=== PATIENT | female | born 1975 | race Two or more races ===

== ENCOUNTER 2024-10-29 18:55 | Emergency (ER) | payer MEDICAID ==
[~2024-10-29] VITALS: Ht 162.6 cm; Wt 66.7 kg
--- NOTE | 2024-10-29 21:02 | ED.PDOC ---
History of Present Illness(SKN HPI Comments PT PRESENTED TO ED FOR UPPER BACK WOUND CHECK AFTER WART REMOVAL BY LOGGING WORKER TODAY @ NOON. PT STATED WOUND WAS NOT DRESSED POST PROCEDURE AND HAS BEEN BLEEDING EXCESSIVELY. WOUND ON MID-UPPERBACK, APPROX. 1/2 INCH X 1/2 INCH. BLEEDING NOTED. WOUND CLEANED AND DRESSED IN TRIAGE. DENIES DIZZINESS, CHEST PAIN, OR BLOOD THINNERS. Chief Complaint: Wound Check Time Seen by MD: 18:56 History of Present Illness: Nurses Notes, Medications, Allergies Allergies: Coded Allergies: No Known Drug Allergy (Verified Allergy, Unknown, 10/29/24) Information Source: Patient Mode of Arrival: Ambulatory Past Medical History PAST MEDICAL HISTORY: Denies Surgical History: Denies all surgeries SENIOR [employer] DEVELOPER History: No Pertinent SENIOR [employer] J[employer] DEVELOPER History Family History Family History: Reviewed,noncontributory to illness Constitutional: denies: chills, diaphoresis, fatigue, fever, malaise, sweats, weakness, others EENTM: denies: blurred vision, double vision, ear bleeding, ear discharge, ear drainage, ear pain, ear ringing, eye pain, eye redness, hearing loss, mouth p ain, mouth swelling, nasal discharge, nose bleeding, nose congestion, nose pain, photophobia, tearing, throat pain, throat swelling, voice changes, others Respiratory: denies: cough, hemoptysis, orthopnea, SOB at rest, shortness of br eath, SOB with excertion, stridor, wheezing, others Cardiovascular: denies: chest pain, dizzy spells, diaphoresis, Dyspnea on exertion, edema, irregular heart beat, left arm pain, lightheadedness, palpitations, PND, syncope, others Gastrointestinal: denies: abdomen distended, abdominal pain, blood streaked bowels, constipated, diarrhea, dysphagia, difficulty swallowing, hematemesis, melena, nausea, poor appetite, poor fluid intake, rectal bleeding, rectal pain, vomiting, others Genitourinary: denies: abnormal vagina bleeding, burning, dyspareunia, dysuria, flank pain, frequency, hematuria, incontinence, pain, , vagina discharge, urgency, others Neurological: denies: dizziness, fainting, headache, left sided numbness, left sided weakness, numbness, paresthesia, pre-existing deficit, right sided numbness, right sided weakness, seizure, speech problems, tingling, tremors, weakness, others Musculoskeletal: denies: back pain, gout, joint pain, joint swelling, muscle pain, muscle stiffness, neck pain, others Integumetry: reports: wounds (UPPER MID BACK SURGICAL WOUND); denies: bruises, change in color, change in hair/nails, dryness, laceration, lesions, lumps, rash, others Allergic/Immunocompromised: denies: Difficulty Healing, Frequent Infections, Hives, Itching, others Hematologic/Lymphatic: denies: anemia, blood clots, easy bleeding, easy bruising, swollen glands, others Endocrine: denies: excessive hunger, excessive sweating, excessive thirst, excessive urination, flushing, intolerance to cold, intolerance to heat, unexplained weight gain, unexplained weight loss, others Psychiatric: denies: anxiety, bipolar disorder, depression, hopeless, panic disorder, schizophrenia, sleepless, suicidal, others Physical Exam General Appearance: No Apparent Distress, Normal HEENT: Pharynx Normal Neck: Full Range of Motion, Non-Tender Respiratory: Chest Non-Tender, Lungs Clear, No Accessory Muscle Use, No Respiratory Distress, Normal Breath Sounds Cardiovascular: No Edema, No JVD, No Murmur, No Gallop, Normal Peripheral Pulses, Regular Rate/Rhythm Breast Exam: Deferred Gastrointestinal: No Organomegaly, Non Tender, No Pulsatile Mass, Normal Bowel Sounds, Soft Genitalia: Deferred Pelvic: Deferred Rectal: Deferred Extremities: Normal capillary refill, Normal inspection, Normal range of motion , Non-tender, No pedal edema Musculoskeletal : Apperance: Normal Neurologic: Alert, diversional therapist's assistant II-XII nml as Tested, No Motor Deficits, Normal Affect, Normal Mood, No Sensory Deficits Cerebellar Function: Normal Reflexes: Normal Skin: Dry, Normal Color, Warm, Wounds (UPPER MID BACK SURGICAL WOUND AVULSION APPROXIMATE NICKEL SIZE NOTED SLOW STEADY BLEEDING NO NOTED DRAINAGE, ERYTHEMA, OR STREAKING.) Lymphatic: No Adenopathy Was a procedure done? Was a procedure done?: Yes Sedation Sedation?: No Informed consent obtained: Yes Other Procedure Procedure BLEEDING SURGICAL WOUND Indication BLEEDING Anesthetic NONE Prep NONE Success BLEEDING STOPPED WITH SURGICEL READDRESSED PATIENT TOLERATED WELL WITH MINIMAL BLOOD LOSS. Informed consent obtained: Yes Risks, benefits, and alternati: Yes Differential Diagnosis (INTG) Differential Diagnosis: Cellulitis, Hematoma, Laceration Differential Diagnosis: Fracture, Hematoma X-Ray, Labs, Meds, VS Vital Signs Date Time Temp Pulse Resp B/P (MAP) Pulse Ox O2 Delivery O2 Flow Rate FiO2 10/29/24 21:09 97.7 88 16 142/81 (101) 99 97.7 10/29/24 21:09 88 16 99 Room Air 10/29/24 20:38 97.7 88 16 142/81 (101) 99 X-Ray, Labs, Meds, VS Comment BLEEDING CONTROLLED SEE PROCEDURE NOTE. ADVISED TO FOLLOW UP WITH LOGGING WORKER SCHEDULED. ADVISED NOT TO REMOVE DRESSING UNTIL SEEN BY DERMATOLOGY. ADVISED TO RETURN TO THE ER FOR UNCONTROLLED BLEEDING OR SIGNS AND SYMPTOMS OF INFECTION PATIENT INDICATED UNDERSTANDING AND AGREES WITH DISCHARGE PLAN OF CARE. Time of 1ST Reevaluation: 21:32 Reevaluation 1ST: Improved Patient Education/Counseling: Diagnosis, Treatment, Prognosis, Need For Follow Up Family Education/Counseling: No Family Present Departure 1 Departure Time of Disposition: 21:32 Impression: Primary Impression: Bleeding from surgical wound Disposition: 01 HOME / SELF CARE / HOMELESS Condition: Stable Discharged With: Self Critical Care Note Critical Care Time?: No Stability Stability form required: DANIELLE Paris Oct 29, 2024 21:02
[2024-10-29 21:09] VITALS: BP 142/81; PULSE 88; RESP 16; TEMP 97.7; O2SAT 99
[2024-10-29] MEDS: SILVER NITRATE-POTAS NITRA STICK TOP ONE (21:33)
== END 2024-10-29 21:54 | disposition home or self-care (01) ==
LOC: ER 18:55
DX: L76.22 Postprocedural hemorrhage of skin and subcutaneous tissue following other procedure (principal)